=== PATIENT | female | born 1930 | race Hispanic/Latino ===

== ENCOUNTER 2016-04-05 12:50 | Outpatient (CLI) | payer MEDICARE ==
--- NOTE | 2016-04-05 14:20 | Ultrasound Report ---
BILATERAL DIGITAL DIAGNOSTIC MAMMOGRAM with CAD and BILATERAL BREAST ULTRASOUND: 04/05/16 12:50:00 CLINICAL: Breast cancer survivor status post right partial mastectomy and radiation therapy. She reports a milky nipple discharge on the right and a clear nipple discharge on the left. COMPARISON:01/08/15 FINDINGS: The breasts are predominantly fatty. Bilateral benign calcifications. The right breast is smaller than the left with stable skin thickening. A stable heavily calcified 1.6 cm right mass in the upper-outer quadrant.No new mass, architectural distortion or suspicious calcifications. Ultrasound of the right breast (including all four quadrants and the retroareolar area) was performed and demonstrated normal fibroglandular and fatty structures except for a shadowing calcified mass at 2 o'clock 9 cm from nipple. It measures approximately 1.0 x 0.9 x 0.6 cm. Ultrasound of the left breast (including all four quadrants and the retroareolar area) was performed and demonstrated normal fibroglandular and fatty structures. No mass, cyst or shadowing. IMPRESSION: Negative mammogram and negative bilateral breast ultrasound. BI-RADS CATEGORY: 2 - - Benign RECOMMENDATION: Routine mammographic screening in one year. ACR BI-RADS MAMMOGRAPHIC CODES: 0 = Needs additional imaging evaluation; 1 = Negative; 2 = Benign; 3 = Probably benign; 4 = Suspicious; 5 = Malignant; 6 = Known biopsy-proven malignancy COMMENT: 1. Dense breast tissue, i.e., adenosis, fibrocystic changes, etc., may obscure an underlying neoplasm. 2. Approximately 10% of cancers are not detected with mammography. 3. A negative mammography report should not delay biopsy if a clinically suspicious mass is present. COMMENT: Patient follow-up letters are generated by our [employer] application.
== END 2016-04-05 12:51 | disposition home or self-care (01) ==
LOC: SPVWC 12:50
PROVIDERS: ATTEND Internal Medicine Hematology & Oncology
DX: C50.919 Malignant neoplasm of unspecified site of unspecified female breast (principal); N64.52 Nipple discharge; R92.1 Mammographic calcification found on diagnostic imaging of breast; Z90.11 Acquired absence of right breast and nipple
CPT/HCPCS: 76641; G0204; 77066

== ENCOUNTER 2017-04-19 12:37 | Outpatient (CLI) | payer MEDICARE ==
--- NOTE | 2017-04-20 11:53 | Mammography Report ---
BILATERAL DIGITAL SCREENING MAMMOGRAM WITH CAD: 04/19/17 12:37:00 CLINICAL: Routine screening.Breast cancer survivor status post right partial mastectomy and radiation therapy. COMPARISON:04/05/16 FINDINGS: The breasts are mostly fatty. Bilateral benign calcifications. The right breast is smaller than the left with stable skin thickening. Stable inner posterior scar with dystrophic calcifications. No mass, suspicious architectural distortion or suspicious calcifications. IMPRESSION: No mammographic evidence of malignancy. BI-RADS CATEGORY: 2 -- Benign RECOMMENDATION: Routine mammographic screening in one year. COMMENT: Patient follow-up letters are generated via our [employer] application.
== END 2017-04-19 12:38 | disposition home or self-care (01) ==
LOC: SPVWC 12:37
PROVIDERS: ATTEND Internal Medicine Hematology & Oncology
DX: Z12.31 Encounter for screening mammogram for malignant neoplasm of breast (principal); Z90.11 Acquired absence of right breast and nipple
CPT/HCPCS: 77067

== ENCOUNTER 2020-10-17 22:47 | Observation (INO) | payer MEDICARE ==
--- NOTE | 2020-10-17 23:31 | Emergency Department Report ---
ED Chest Pain HPI - General Chief Complaint: Chest Pain Stated Complaint: LIGHT HEADED, PALPATIONS Time Seen by Provider: 10/17/20 23:07 Source: patient, EMS Mode of arrival: Wheelchair Limitations: Other - History of Present Illness Initial Comments: This is an 89-year-old female presents to the emergency department with a complaint of generalized chest pressure/tightness, shortness of breath, and palpitations that started this evening. The patient says that she took a Xanax, as she usually does, before bed, as well as a Tylenol for chronic leg pains. When she first laid down and tried to sleep she felt like her heart was beating very fast and felt it in her neck. Then she began feeling as if her heart was skipping beats. Then the patient began to have some of the chest tightness and shortness of breath. She denies any fever, lower extremity swelling, cough, nausea, vomiting, back pain or diaphoresis. Patient has a past medical history of previous breast and ovarian cancer, hypertension, arthritis. She has a history of a right mastectomy and a hysterectomy. Patient follows with Dr. Mansoor Abreu for primary care and her rn internal medicine is Dr. Saul Cárdenas. The patient says that she has been worked up in the past for a history of palpitations. No recent travel or sick contacts at home. - Related Data Allergies Allergy/AdvReac Type Severity Reaction Status Date / Time codeine AdvReac Unknown Unverified 01/08/14 11:14 nitroglycerin AdvReac Unknown Unverified 01/08/14 11:14 sertraline HCl [From Zoloft] AdvReac Unknown Unverified 01/08/14 11:14 Heart Score - HEART Score History: Slightly suspicious EKG: Normal Age: > 65 Risk factors: 1-2 risk factors Troponin: < normal limit HEART Score: 3 - EKG Read Time Time EKG Completed: 23:16 EKG Read Time: 23:20 ED Review of Systems ROS: Stated complaint: LIGHT HEADED, PALPATIONS Other details as noted in HPI Comment: All other systems reviewed and negative Constitutional: denies: chills, fever Eyes: denies: eye pain, vision change ENT: denies: ear pain, throat pain Respiratory: shortness of breath. denies: cough Cardiovascular: chest pain, palpitations. denies: edema Gastrointestinal: denies: abdominal pain, vomiting Genitourinary: denies: dysuria, discharge Musculoskeletal: denies: back pain, arthralgia Skin: denies: rash, lesions Neurological: denies: headache, weakness ED Past Medical Hx - Past Medical History Previous Medical History?: Yes Hx Hypertension: Yes Hx of Cancer: Yes (breast, ovarian) Hx Arthritis: Yes - Surgical History Past Surgical History?: Yes Additional Surgical History: Hysterectomy, right mastectomy, catarack - Social History Smoking Status: Never Smoker Substance Use Type: None ED Physical Exam - General Limitations: Other - Other Other exam information: GENERAL: The patient is well-developed well-nourished. HENT: Normocephalic. Atraumatic. Patient has moist mucous membranes. EYES: Extraocular motions are intact. NECK: Supple. Trachea is midline. CHEST/LUNGS: Clear to auscultation. There is no respiratory distress noted. HEART/CARDIOVASCULAR: Regular. There is no tachycardia. There is no murmur. ABDOMEN: Abdomen is soft, nontender. Patient has normal bowel sounds. SKIN: Skin is warm and dry. NEURO: The patient is awake, alert, and oriented. The patient is cooperative. The patient has no focal neurologic deficits. Normal speech. MUSCULOSKELETAL: There is no tenderness or deformity. ED Course Vital Signs 10/17/20 10/17/20 10/17/20 23:14 23:15 23:30 Pulse Rate 97 H 94 H 83 Respiratory 17 14 20 Rate Blood Pressure 150/57 O2 Sat by Pulse 95 Oximetry 10/17/20 10/18/20 23:46 00:01 Pulse Rate 81 Respiratory 14 20 Rate Blood Pressure 150/57 O2 Sat by Pulse 95 99 Oximetry BEKA score - Beka Score Age > 65: (1) Yes Aspirin use within the Past 7 Days: (0) No 3 or more CAD Risk Factors: (0) No 2 or more Angina events in past 24 hrs: (1) Yes Known CAD with more than 50% Stenosis: (0) No Elevated Cardiac Markers: (0) No ST Deviation Greater than 0.5mm: (0) No BEKA Score: 2 ED Medical Decision Making - Lab Data Result diagrams: 10/17/20 23:35 10/17/20 23:35 Lab Results 10/17/20 10/17/20 10/17/20 Range/Units 23:35 23:35 23:35 WBC 8.5 (4.5-11.0) K/mm3 RBC 4.17 (3.65-5.03) M/mm3 Hgb 12.9 (10.1-14.3) gm/dl Hct 38.8 (30.3-42.9) % MCV 93 (79-97) fl MCH 31 (28-32) pg MCHC 33 (30-34) % RDW 14.7 (13.2-15.2) % Plt Count 345 (140-440) K/mm3 Lymph % (Auto) 48.3 H (13.4-35.0) % [place] % (Auto) 7.5 H (0.0-7.3) % Eos % (Auto) 2.7 (0.0-4.3) % Baso % (Auto) 1.5 (0.0-1.8) % Lymph # (Auto) 4.1 (1.2-5.4) K/mm3 [place] # (Auto) 0.6 (0.0-0.8) K/mm3 Eos # (Auto) 0.2 (0.0-0.4) K/mm3 Baso # (Auto) 0.1 (0.0-0.1) K/mm3 Seg Neutrophils % 40.0 (40.0-70.0) % Seg Neutrophils # 3.4 (1.8-7.7) K/mm3 D-Dimer 323.16 H (0-234) ng/mlDDU Sodium 140 (137-145) mmol/L Potassium 4.1 (3.6-5.0) mmol/L Chloride 105.8 (98-107) mmol/L Carbon Dioxide 24 (22-30) mmol/L Anion Gap 14 mmol/L BUN 20 H (7-17) mg/dL Creatinine 0.6 (0.6-1.2) mg/dL Estimated GFR > 60 ml/min BUN/Creatinine Ratio 33 % Glucose 157 H (65-100) mg/dL Calcium 8.8 (8.4-10.2) mg/dL Total Bilirubin < 0.20 (0.1-1.2) mg/dL AST 20 (5-40) units/L ALT 44 (7-56) units/L Alkaline Phosphatase 96 (35-129) units/L Troponin T < 0.010 (0.00-0.029) ng/mL NT-Pro-B Natriuret Pep 68.91 (0-900) pg/mL Total Protein 6.8 (6.3-8.2) g/dL Albumin 4.1 (3.9-5) g/dL Albumin/Globulin Ratio 1.5 % - EKG Data -: EKG Interpreted by Me EKG shows normal: sinus rhythm (PVCs), axis (Left axis deviation), intervals, QRS complexes (Low voltage), ST-T waves Rate: normal - EKG Data When compared to previous EKG there are: previous EKG unavailable Interpretation: other (Sinus rhythm at 86 bpm, PVCs, left axis deviation, low voltage QRS. No ST elevation MT) - Radiology Data Radiology results: image reviewed interpreted by me: Chest x-ray does not show any acute process. There are no pleural effusions, obvious pneumonia and there is no pneumothorax. No widened mediastinum - Medical Decision Making This patient presents to the emergency department with a complaint of some palpitations, generalized chest tightness, and some shortness of breath. Heart and lung exams are normal to auscultation and the patient does not appear in any respiratory or acute distress at this time. EKG shows LVH but otherwise does not have any morphology consistent with ST elevation myocardial infarction or any significant arrhythmia. Chest x-ray does not show any pneumonia, pleural effusions, pneumothorax, widened mediastinum, or any other acute process. Labs have been mostly unremarkable thus far including CBC, metabolic panel and a negative troponin. Patient has a slightly elevated and equivocal D-dimer level, but age-adjusted it is low suspicion for VTE. The patient has a moderate heart score. She will be admitted to the hospital for further evaluation and treatment and was accepted for admission by the hospitalist, Dr. Arriaga. Critical Care Time: No Critical care attestation.: If time is entered above; I have spent that time in minutes in the direct care of this critically ill patient, excluding procedure time. ED Disposition Clinical Impression: Acute chest pain, Palpitations Hypertension Qualifiers: Hypertension type: primary hypertension Qualified Code(s): I10 - Essential (primary) hypertension Disposition: OP ADMIT IP TO THIS HOSP Is pt being admited?: Yes Condition: Fair Instructions: Chest Pain (ED), Hypertension (ED) Time of Disposition: 00:46
[2020-10-17 23:55] LABS: Basophils # (Auto) 0.1 K/mm3 (0.0-0.1); Basophils % (Auto) 1.5 % (0.0-1.8); Eosinophils # (Auto) 0.2 K/mm3 (0.0-0.4); Eosinophils % (Auto) 2.7 % (0.0-4.3); Hematocrit 38.8 % (30.3-42.9); Hemoglobin 12.9 gm/dl (10.1-14.3); Lymphocytes # (Auto) 4.1 K/mm3 (1.2-5.4); Lymphocytes % (Auto) 48.3 % (13.4-35.0); Mean Corpuscular HGB Conc 33 % (30-34); Mean Corpuscular Volume 93 fl (79-97); Monocytes # (Auto) 0.6 K/mm3 (0.0-0.8); Monocytes % (Auto) 7.5 % (0.0-7.3); Platelet Count 345 K/mm3 (140-440); Red Blood Count 4.17 M/mm3 (3.65-5.03); Red Cell Distribution Width 14.7 % (13.2-15.2)
--- NOTE | 2020-10-18 00:13 | XRay Report ---
CHEST 1 VIEW INDICATION: CP. COMPARISON: None FINDINGS: SUPPORT DEVICES: None. HEART: Within normal limits. LUNGS/PLEURA: No acute air space or interstitial disease. ADDITIONAL FINDINGS: None. IMPRESSION: 1. No acute findings. Signer Name: Jaskaran Bermudez MD Signed: 10/18/2020 12:09 AM Workstation Name: [id number]
[2020-10-18 00:18] LABS: Alanine Aminotransferase 44 units/L (7-56); Albumin 4.1 g/dL (3.9-5); Blood Urea Nitrogen 20 mg/dL (7-17); Calcium 8.8 mg/dL (8.4-10.2); Hemolysis Index 1
[2020-10-18 00:21] LABS: BUN/Creatinine Ratio 33
[2020-10-18] MEDS ORDERED: ASPIRIN 81 MG TAB CHEW PO ONE (00:29)
[2020-10-18] MEDS ORDERED: MORPHINE 2 MG/1 ML INJ IV PRN ×2 (01:32)
[2020-10-18] MEDS ORDERED: ONDANSETRON 4 MG/2 ML INJ IV PRN (01:32)
[2020-10-18] MEDS ORDERED: ACETAMINOPHEN 325 MG TAB PO PRN ×2 (01:32)
[2020-10-18] MEDS ORDERED: MORPHINE 4 MG/1 ML INJ IV PRN (01:32)
[2020-10-18] MEDS ORDERED: MAGNESIUM HYDROXIDE (MOM) ORAL LIQD UDC PO PRN (01:32)
[2020-10-18] MEDS ORDERED: NITROGLYCERIN 0.4 MG TAB SUBL SL PRN (01:32)
[2020-10-18] MEDS ORDERED: traMADol 50 MG TAB PO PRN (01:32)
--- NOTE | 2020-10-18 01:52 | History and Physical Report ---
History of Present Illness Date of examination: 10/18/20 Date of admission: 10/18/20 00:46 Chief complaint: Chest Pressure/Tightness History of present illness: 89-year-old white female with known history of hypertension and arthritis presents to the emergency room today complaining of chest pressure and palpitation. She has also been having some associated shortness of breath. Patient indicates that she was trying to sleep when she felt that her heart was racing and skipping beats. There is no no relieving or exacerbating factor for chest pressure. Denies any fever or chills, no nausea vomiting, no headache or dizziness and no diaphoresis. Patient states she follows up with her cardiologistDr. Saul Cárdenas with [facility]. She had a stress test a few weeks ago which she indicates was within normal limits. Work-up today in the emergency room has been unremarkable. Patient is being admitted for evaluation of her chest pain. Past History Past Medical History: arthritis, hypertension, other (Breast ca, Ovarian Ca) Past Surgical History: Other ( Hysterectomy, right mastectomy, cataract) Social history: no significant social history Family history: no significant family history Medications and Allergies Allergies Allergy/AdvReac Type Severity Reaction Status Date / Time codeine AdvReac Unknown Unverified 01/08/14 11:14 nitroglycerin AdvReac Unknown Unverified 01/08/14 11:14 sertraline HCl [From Zoloft] AdvReac Unknown Unverified 01/08/14 11:14 Active Meds: Active Medications Acetaminophen (Acetaminophen 325 Mg Tab) 650 mg PO Q4H PRN PRN Reason: Pain MILD(1-3)/Fever >100.5/JOHNSON Acetaminophen (Acetaminophen 325 Mg Tab) 650 mg PO Q6H PRN PRN Reason: Pain, Mild (1-3) Aspirin (Aspirin Ec 325 Mg Tab) 325 mg PO QDAY BECKY Magnesium Hydroxide (Magnesium Hydroxide (Mom) Oral Liqd Udc) 30 ml PO Q4H PRN PRN Reason: Constipation Morphine Sulfate (Morphine 2 Mg/1 Ml Inj) 2 mg IV Q4H PRN PRN Reason: Pain, Moderate (4-6) Morphine Sulfate (Morphine 4 Mg/1 Ml Inj) 4 mg IV Q4H PRN PRN Reason: Pain , Severe (7-10) Morphine Sulfate (Morphine 4 Mg/1 Ml Inj) 2 mg IV Q5MIN PRN PRN Reason: Chest Pain Nitroglycerin (Nitroglycerin 0.4 Mg Tab Subl) 0.4 mg SL Q5M PRN PRN Reason: Chest Pain Ondansetron HCl (Ondansetron 4 Mg/2 Ml Inj) 4 mg IV Q8H PRN PRN Reason: Nausea And Vomiting Sodium Chloride (Sodium Chloride 0.9% 10 Ml Flush Syringe) 10 ml IV BID BECKY Sodium Chloride (Sodium Chloride 0.9% 10 Ml Flush Syringe) 10 ml IV PRN PRN PRN Reason: LINE FLUSH Sodium Chloride (Sodium Chloride 0.9% 10 Ml Flush Syringe) 10 ml IV PRN PRN PRN Reason: LINE FLUSH Tramadol HCl (Tramadol 50 Mg Tab) 50 mg PO Q6H PRN PRN Reason: Pain, Moderate (4-6) Review of Systems Constitutional: no fever, no chills Ears, nose, mouth and throat: no nasal congestion, no sore throat Cardiovascular: chest pain, palpitations Respiratory: no cough, no shortness of breath Gastrointestinal: no nausea, no vomiting, no diarrhea Genitourinary Female: no pelvic pain, no flank pain, no dysuria, no hematuria Musculoskeletal: no neck pain, no low back pain Integumentary: no rash, no pruritis Neurological: no headaches, no confusion Psychiatric: no anxiety, no depression Endocrine: no polyphagia, no polydipsia, no polyuria, no nocturia Exam - Constitutional Vitals: Temp Pulse Resp BP Pulse Ox 81 20 150/57 99 10/17/20 23:46 10/18/20 00:01 10/17/20 23:46 10/18/20 00:01 General appearance: Present: no acute distress, well-nourished - EENT Eyes: Present: PERRL, EOM intact. Absent: scleral icterus ENT: hearing intact, clear oral mucosa, dentition normal - Neck Neck: Present: supple, normal ROM - Respiratory Respiratory effort: normal Respiratory: bilateral: CTA - Cardiovascular Rhythm: regular Heart Sounds: Present: S1 & S2. Absent: gallop, systolic murmur, diastolic murmur, rub, click - Extremities Extremities: no ischemia, pulses intact, pulses symmetrical, No edema, normal temperature, normal color, Full ROM Peripheral Pulses: within normal limits - Abdominal General gastrointestinal: Present: soft, non-tender, non-distended, normal bowel sounds. Absent: mass - Integumentary Integumentary: Present: clear, warm, dry, normal turgor. Absent: rash - Musculoskeletal Musculoskeletal: strength equal bilaterally - Psychiatric Psychiatric: appropriate mood/affect, intact judgment & insight, memory intact, cooperative - Neurologic Neurologic: CNII-XII intact, no focal deficits, moves all extremities HEART Score - HEART Score EKG: Normal Age: > 65 Risk factors: 1-2 risk factors Troponin: Troponin T < 0.010 ng/mL (0.00-0.029) 10/17/20 23:35 Troponin: < normal limit Results - Labs CBC & Chem 7: 10/17/20 23:35 10/17/20 23:35 Labs: Abnormal lab results 10/17/20 10/17/20 10/17/20 Range/Units 23:35 23:35 23:35 Lymph % (Auto) 48.3 H (13.4-35.0) % Stevens % (Auto) 7.5 H (0.0-7.3) % D-Dimer 323.16 H (0-234) ng/mlDDU BUN 20 H (7-17) mg/dL Glucose 157 H (65-100) mg/dL Assessment and Plan - Patient Problems (1) Acute chest pain Current Visit: Yes Status: Acute Plan to address problem: Patient admitted and placed on telemetry. We will check serial cardiac enzymes. Patient placed on aspirin, sublingual nitroglycerin and IV morphine as needed for chest pain. Consult placed to cardiology for evaluation and recommendation. (2) Hypertension Current Visit: Yes Status: Acute Qualifiers: Hypertension type: primary hypertension Qualified Code(s): I10 - Essential (primary) hypertension Plan to address problem: We will resume routine home medications once reconciled and monitor vital signs closely. (3) DVT prophylaxis Current Visit: Yes Status: Acute Plan to address problem: Patient placed on subcutaneous heparin. (4) Full code status Current Visit: Yes Status: Acute Plan to address problem: Patient is full code.
[2020-10-18 03:20] LABS: Hematocrit 37.2 % (30.3-42.9); Hemoglobin 12.5 gm/dl (10.1-14.3); Mean Corpuscular HGB Conc 34 % (30-34); Mean Corpuscular Volume 94 fl (79-97); Platelet Count 320 K/mm3 (140-440); Red Blood Count 3.96 M/mm3 (3.65-5.03)
[2020-10-18 03:39] LABS: BUN/Creatinine Ratio 30; Blood Urea Nitrogen 18 mg/dL (7-17); Calcium 9.1 mg/dL (8.4-10.2); Hemolysis Index 7
[2020-10-18 07:35] LABS: Large Platelets Few; Platelet Estimate Consistent w Auto; RBC Morphology Normal; Total Cells Counted 100
--- NOTE | 2020-10-18 13:19 | Consultation ---
History of Present Illness Consult date: 10/18/20 Consult reason: other (Palpitation) History of present illness: Patient is an 89-year-old woman admitted to the hospital with complaints of intermittent palpitations over 2 days. Her episodes are described as brief, not associated with chest pain, no shortness of breath and no syncope. She has a long history of intermittent palpitations and on previous outpatient Holter monitoring was found with nonsustained, paroxysmal atrial tachycardia. The patient is on diltiazem 300 mg daily. There is no history of coronary artery disease, and prior left ventricular function assessment has documented normal ejection fraction 60 to 65%. There is no history of atrial fibrillation documented on her outpatient records. On her presentation here the ECG was in sinus rhythm with occasional PACs, no acute ST or T wave changes. On the monitoring manager during her course in the emergency room, no tachyarrhythmias or dysrhythmias have been reported. She is currently in a normal sinus rhythm at 82. Past History Past Medical History: arrhythmia (Paroxysmal atrial tachycardia), arthritis, hypertension, other (Breast ca, Ovarian Ca) Past Surgical History: Other ( Hysterectomy, right mastectomy, cataract) Social history: no significant social history Family history: no significant family history Medications and Allergies Allergies Allergy/AdvReac Type Severity Reaction Status Date / Time codeine AdvReac Unknown Unverified 01/08/14 11:14 nitroglycerin AdvReac Unknown Unverified 01/08/14 11:14 sertraline HCl [From Zoloft] AdvReac Unknown Unverified 01/08/14 11:14 Active Meds: Active Medications Acetaminophen (Acetaminophen 325 Mg Tab) 650 mg PO Q4H PRN PRN Reason: Pain MILD(1-3)/Fever >100.5/JOHNSON Aspirin (Aspirin Ec 325 Mg Tab) 325 mg PO QDAY BECKY Magnesium Hydroxide (Magnesium Hydroxide (Mom) Oral Liqd Udc) 30 ml PO Q4H PRN PRN Reason: Constipation Morphine Sulfate (Morphine 2 Mg/1 Ml Inj) 2 mg IV Q4H PRN PRN Reason: Pain, Moderate (4-6) Morphine Sulfate (Morphine 4 Mg/1 Ml Inj) 4 mg IV Q4H PRN PRN Reason: Pain , Severe (7-10) Morphine Sulfate (Morphine 2 Mg/1 Ml Inj) 2 mg IV Q5MIN PRN PRN Reason: Chest Pain Ondansetron HCl (Ondansetron 4 Mg/2 Ml Inj) 4 mg IV Q8H PRN PRN Reason: Nausea And Vomiting Sodium Chloride (Sodium Chloride 0.9% 10 Ml Flush Syringe) 10 ml IV BID BECKY Last Admin: 10/18/20 12:51 Dose: 10 ml Documented by: Sodium Chloride (Sodium Chloride 0.9% 10 Ml Flush Syringe) 10 ml IV PRN PRN PRN Reason: LINE FLUSH Tramadol HCl (Tramadol 50 Mg Tab) 50 mg PO Q6H PRN PRN Reason: Pain, Moderate (4-6) Review of Systems Cardiovascular: palpitations, shortness of breath, no chest pain, no orthopnea, no rapid/irregular heart beat, no edema, no syncope, no lightheadedness Physical Examination Vital Signs Pulse Resp 97 H 17 10/17/20 23:14 10/17/20 23:14 General appearance: no acute distress HEENT: Positive: PERRL Neck: Positive: neck supple Cardiac: Positive: Reg Rate and Rhythm Lungs: Positive: clear to auscultation Neuro: Positive: Grossly Intact Abdomen: Positive: Soft Female genitourinary: deferred Extremities: Absent: edema Results 10/18/20 02:16 10/18/20 02:16 Cardiac Enzymes 10/17/20 Range/Units 23:35 AST 20 (5-40) units/L CBC 10/17/20 10/18/20 Range/Units 23:35 02:16 WBC 8.5 9.1 (4.5-11.0) K/mm3 RBC 4.17 3.96 (3.65-5.03) M/mm3 Hgb 12.9 12.5 (10.1-14.3) gm/dl Hct 38.8 37.2 (30.3-42.9) % Plt Count 345 320 (140-440) K/mm3 Lymph # (Auto) 4.1 Child Advocate (1.2-5.4) K/mm3 [place] # (Auto) 0.6 (0.0-0.8) K/mm3 Eos # (Auto) 0.2 (0.0-0.4) K/mm3 Baso # (Auto) 0.1 (0.0-0.1) K/mm3 Comprehensive Metabolic Panel 10/17/20 10/18/20 Range/Units 23:35 02:16 Sodium 140 143 (137-145) mmol/L Potassium 4.1 4.4 (3.6-5.0) mmol/L Chloride 105.8 107.1 H (98-107) mmol/L Carbon Dioxide 24 29 (22-30) mmol/L BUN 20 H 18 H (7-17) mg/dL Creatinine 0.6 0.6 (0.6-1.2) mg/dL Glucose 157 H 101 H (65-100) mg/dL Calcium 8.8 9.1 (8.4-10.2) mg/dL AST 20 (5-40) units/L ALT 44 (7-56) units/L Alkaline Phosphatase 96 (35-129) units/L Total Protein 6.8 (6.3-8.2) g/dL Albumin 4.1 (3.9-5) g/dL EKG interpretations - Telemetry EKG Rhythm: Sinus Rhythm Assessment and Plan - Patient Problems (1) Palpitations Current Visit: Yes Status: Acute Plan to address problem: Patient has chronic palpitations due to paroxysmal atrial tachycardia. She is currently on diltiazem CD 300 mg daily. We will continue current therapy and if needed we will switch diltiazem to a beta-kenney for symptom relief of unsustained paroxysmal atrial tachycardia. Otherwise, conservative cardiac management in this elderly, frail patient with multiple comorbidities.
--- NOTE | 2020-10-18 14:34 | Electrocardiograph Report ---
[facility] Test Date: 2020-10-17 Test Time: 23:16:24 Pat Name: ABDIFATAH ADHIKARI Department: Room: [facility] Gender: F Nurse Head: JAMES : 1930 Requested By: MAYRA KEEN Order Number: [id number] Reading MD: Jonathan Sam Measurements Intervals [place] Rate: 86 P: 36 OR: 177 QRS: -37 QRSD: 104 T: 60 QT: 382 QTc: 449 Interpretive Statements Sinus rhythm Multiple premature complexes, vent & supraven Left axis deviation Low voltage, precordial leads No previous ECG available for comparison Electronically Signed On 10-18-2020 14:33:52 EDT by Jonathan Sam
--- NOTE | 2020-10-18 18:45 | Event Note ---
Date: 10/18/20 Patient seen and examined This is a second visit after midnight Patient presented with complaints of palpitations Resume home meds, consulted cardiology Continue to monitor overnight, no further cardiac intervention by cardiology If clinically stable possible discharge tomorrow.
[2020-10-19 05:39] LABS: Basophils # (Auto) 0.1 K/mm3 (0.0-0.1); Basophils % (Auto) 1.2 % (0.0-1.8); Eosinophils # (Auto) 0.3 K/mm3 (0.0-0.4); Eosinophils % (Auto) 3.2 % (0.0-4.3); Hematocrit 39.6 % (30.3-42.9); Hemoglobin 13.2 gm/dl (10.1-14.3); Lymphocytes % (Auto) 38.6 % (13.4-35.0); Mean Corpuscular HGB Conc 33 % (30-34); Mean Corpuscular Volume 94 fl (79-97); Monocytes # (Auto) 0.8 K/mm3 (0.0-0.8); Monocytes % (Auto) 7.6 % (0.0-7.3); Platelet Count 322 K/mm3 (140-440); Red Blood Count 4.23 M/mm3 (3.65-5.03); Red Cell Distribution Width 14.7 % (13.2-15.2)
[2020-10-19 05:49] LABS: INR 0.89 (0.87-1.13)
[2020-10-19 06:17] LABS: Blood Urea Nitrogen 13 mg/dL (7-17); Hemolysis Index 3
[2020-10-19 06:21] LABS: BUN/Creatinine Ratio 22
[2020-10-19] MEDS ORDERED: ASPIRIN EC 325 MG TAB PO SCH (10:00)
--- NOTE | 2020-10-19 10:13 | Electrocardiograph Report ---
[facility] Test Date: 2020-10-19 Test Time: 07:46:53 Pat Name: ABDIFATAH ADHIKARI Department: Room: A460 1 Gender: F Director And Professor: JOSEP : 1930 Requested By: CHRIS AVENDANO Order Number: [id number] Reading MD: Adi Grier Measurements Intervals [place] Rate: 84 P: 45 UT: 177 QRS: -43 QRSD: 87 T: 39 QT: 402 QTc: 476 Interpretive Statements Sinus rhythm Supraventricular bigeminy Left anterior fascicular block nonspecific st-t Compared to ECG 10/17/2020 23:16:24 Atrial premature complex(es) now present Left anterior fascicular block now present Left-axis deviation no longer present Electronically Signed On 10-19-2020 10:12:50 EDT by Adi Grier
--- NOTE | 2020-10-19 11:48 | Progress Note ---
Assessment and Plan - Patient Problems (1) Palpitations Current Visit: Yes Status: Acute Plan to address problem: Patient has chronic palpitations due to paroxysmal atrial tachycardia. She is currently on diltiazem CD 300 mg daily. We will continue current therapy for symptom relief of unsustained paroxysmal atrial tachycardia. Otherwise, conservative cardiac management. Subjective Date of service: 10/19/20 Interval history: Patient is comfortable, no acute distress, on phototypesetting equipment monitor she is in sinus rhythm at 96. No atrial tachycardia has been reported. Objective Vital Signs Temp Pulse Resp BP BP Pulse Ox 10/19/20 07:26 98.2 F 65 18 126/52 93 10/19/20 03:23 98.2 F 82 16 149/70 95 10/19/20 00:26 82 10/18/20 23:24 97.8 F 86 16 173/86 92 10/18/20 20:36 97.8 F 90 18 172/99 94 10/18/20 20:26 18 98 10/18/20 20:20 107 H 18 10/18/20 20:10 103 H 26 H 177/90 92 10/18/20 20:00 103 H 25 H 177/90 94 10/18/20 19:50 103 H 15 147/64 93 10/18/20 19:40 106 H 14 147/64 95 10/18/20 19:30 93 H 19 147/64 94 10/18/20 19:20 100 H 15 147/64 94 10/18/20 19:10 91 H 17 147/64 92 10/18/20 19:00 93 H 19 147/64 94 10/18/20 18:50 91 H 17 164/67 91 10/18/20 18:40 96 H 19 164/67 90 10/18/20 18:30 101 H 17 164/67 92 10/18/20 18:20 93 H 25 H 146/71 94 10/18/20 18:10 96 H 21 146/71 94 10/18/20 18:00 95 H 13 146/71 94 10/18/20 17:05 100 H 13 146/71 10/18/20 16:00 93 H 15 146/71 94 10/18/20 15:02 132/73 95 10/18/20 14:00 92 H 24 132/73 94 10/18/20 13:00 88 14 147/72 94 10/18/20 12:54 83 18 147/72 98 10/18/20 12:00 87 25 H 137/69 94 - Physical Examination General: No Apparent Distress HEENT: Positive: PERRL Neck: Positive: neck supple Cardiac: Positive: Reg Rate and Rhythm Lungs: Positive: clear to auscultation Neuro: Positive: Grossly Intact Abdomen: Positive: Soft Extremities: Absent: edema - Labs and Meds Coagulation 10/19/20 Range/Units 05:10 PT 12.5 (12.2-14.9) Sec. INR 0.89 (0.87-1.13) CBC 10/19/20 Range/Units 05:10 WBC 10.3 (4.5-11.0) K/mm3 RBC 4.23 (3.65-5.03) M/mm3 Hgb 13.2 (10.1-14.3) gm/dl Hct 39.6 (30.3-42.9) % Plt Count 322 (140-440) K/mm3 Lymph # (Auto) 4.0 (1.2-5.4) K/mm3 [place] # (Auto) 0.8 (0.0-0.8) K/mm3 Eos # (Auto) 0.3 (0.0-0.4) K/mm3 Baso # (Auto) 0.1 (0.0-0.1) K/mm3 Comprehensive Metabolic Panel 10/19/20 Range/Units 05:10 Sodium 142 (137-145) mmol/L Potassium 4.2 (3.6-5.0) mmol/L Chloride 105.8 (98-107) mmol/L Carbon Dioxide 29 (22-30) mmol/L BUN 13 (7-17) mg/dL Creatinine 0.6 (0.6-1.2) mg/dL Glucose 106 H (65-100) mg/dL Calcium 9.0 (8.4-10.2) mg/dL
--- NOTE | 2020-10-19 14:49 | Discharge Summary ---
Providers - Providers Date of Admission: 10/18/20 00:46 Date of discharge: 10/19/20 Attending physician: ISI GRIFFIN 10/18/20 Consult to Cardiac Rehabilitation [CONS] Routine Reason For Exam: Phase I 10/18/20 00:46 Consult to Cardiology [CONS] Routine Consulting Provider: SHARI CÁRDENAS Reason For Exam: Chest pain, Palpitations Primary care physician: MINDA SUAREZ Hospitalization Condition: Fair Hospital course: Patient is an 89-year-old woman admitted to the hospital with complaints of intermittent palpitations over 2 days. She has a long history of intermittent palpitations and on previous outpatient Holter monitoring was found with nonsustained, paroxysmal atrial tachycardia. The patient is on diltiazem 300 mg daily. 2d echo showed left ventricular function assessment has documented normal ejection fraction 60 to 65%. On her presentation here the ECG was in sinus rhythm with occasional PACs, no acute ST or T wave changes. Cardiology consulted and recommended medical mx with her current home meds and outpt patient was monitored o/n and was then discharged home in stable condition with outpatient follow-up She will follow-up with her global product manager Dr. Cárdenas in 1 week. Disposition: [id number] HOME UNDER HOME [facility] Final Discharge Diagnosis (Prints w/discharge instructions): --(Paroxysmal atrial tachycardia), arthritis, hypertension, other (Breast ca, Ovarian Ca) Time spent for discharge: 34 minutes Core Measure Documentation - Palliative Care Palliative Care/ Comfort Measures: Not Applicable - Core Measures Any of the following diagnoses?: history only Exam - Physical Exam Narrative exam: GENERAL: well-developed elderly white female lying on bed appeared to be in no discomfort. HEENT: Normocephalic. Atraumatic. No conjunctival congestion or icterus. Patient has moist mucous membranes. NECK: Supple. Trachea midline. CHEST/LUNGS: Clear to auscultated bilaterally, breathing nonlabored. No wheezes crackles or rhonchi. HEART/CARDIOVASCULAR: Regular in rate and rhythm. S1 and S2 positive. ABDOMEN: Abdomen is soft, nontender. Patient has normal bowel sounds. SKIN: There is no rash. Warm and dry. NEURO: No focal motor deficit. Follows command. MUSCULOSKELETAL: No joint effusion or tenderness. EXTRIMITY: No edema, no cyanosis or clubbing. PSYCH: Cooperative. - Constitutional Vitals: Temp Pulse Resp BP Pulse Ox 98.6 F 66 18 142/61 91 10/19/20 11:50 10/19/20 11:50 10/19/20 11:50 10/19/20 11:50 10/19/20 11:50 Plan Activity: advance as tolerated Weight Bearing Status: Weight Bear as Tolerated Diet: low fat, low salt Follow up with: MINDA SUAREZ MD [Primary Care Provider] - 7 Days SHARI CÁRDENAS MD [Staff Physician] - 7 Days Prescriptions: dilTIAZem CD [Cardizem CD] 300 mg PO QDAY #30 capsule Aspirin EC [Halfprin EC] 81 mg PO QDAY #30 tablet.
[2020-10-19] MEDS ORDERED: dilTIAZem CD 300 MG CAP PO SCH (15:30)
[2020-10-19 15:39] VITALS: BP 142/71
--- NOTE | 2020-10-22 09:03 | Electrocardiograph Report ---
[facility] Test Date: 2020-10-19 Test Time: 10:11:28 Pat Name: ABDIFATAH ADHIKARI Department: Room: A460 1 Gender: F Floor Representative: SRINI : 1930 Requested By: CHRIS AVENDANO Order Number: [id number] Reading MD: Adi Grier Measurements Intervals [place] Rate: 86 P: 61 VT: 173 QRS: -46 QRSD: 85 T: 54 QT: 383 QTc: 458 Interpretive Statements Sinus rhythm Atrial premature complex nonspecific st-t LAD, CONSIDER LEFT ANTERIOR FASCICULAR BLOCK poor r wave progression Compared to ECG 10/19/2020 07:46:53 Electronically Signed On 10-22-2020 9:03:31 EDT by Adi Grier
== END 2020-10-19 19:00 | disposition home health service (06) ==
LOC: ED 22:47 → 4A 10-18 00:46
PROVIDERS: ADMIT Internal Medicine Geriatric Medicine; ATTEND Internal Medicine
DX: R07.89 Other chest pain (principal); I10 Essential (primary) hypertension; R00.2 Palpitations; M19.90 Unspecified osteoarthritis, unspecified site; Z85.3 Personal history of malignant neoplasm of breast; Z85.43 Personal history of malignant neoplasm of ovary; Z90.710 Acquired absence of both cervix and uterus; Z79.899 Other long term (current) drug therapy; Z98.890 Other specified postprocedural states; Z98.49 Cataract extraction status, unspecified eye; Z79.82 Long term (current) use of aspirin
CPT/HCPCS: 36415; 71045; 80048; 80053; 83880; 84484; 85025; 85379; 85610; 93005; 93306; 99285; G0378; 85007